=== PATIENT | male | born 1995 | race Caucasian/White ===

== ENCOUNTER 2017-01-27 01:26 | Emergency (ER) | payer SELFPAY ==
[2017-01-27 01:32] VITALS: BP 132/73
[2017-01-27] MEDS ORDERED: HYDROCODONE/ACETAMINOPHEN 5-325 MG TABLET PO ONE (02:24)
[2017-01-27] MEDS ORDERED: BACITRACIN ZINC OINTMENT 15 GM TP ONE (02:24)
[2017-01-27] MEDS ORDERED: IBUPROFEN 800 MG TABLET PO ONE (02:24)
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
== END 2017-01-27 04:36 | disposition left against medical advice (07) ==
LOC: ER 01:26
DX: S50.12XA Contusion of left forearm, initial encounter (principal); S40.812A Abrasion of left upper arm, initial encounter; M79.632 Pain in left forearm; W22.8XXA Striking against or struck by other objects, initial encounter; Y92.009 Unspecified place in unspecified non-institutional (private) residence as the place of occurrence of the external cause; F17.200 Nicotine dependence, unspecified, uncomplicated
CPT/HCPCS: 99283; J3490

== ENCOUNTER 2017-02-01 21:05 | Emergency (ER) | payer SELFPAY ==
[2017-02-01 22:24] VITALS: BP 121/71
[2017-02-01 23:26] LABS: APPEARANCE,URINE CLEAR; BILIRUBIN,URINE NEGATIVE (NEGATIVE); GLUCOSE, URINE NEGATIVE (NEGATIVE); KETONES,URINE NEGATIVE (NEGATIVE); LEUKOCYTE ESTERASE,URINE NEGATIVE (NEGATIVE); NITRITE,URINE NEGATIVE (NEGATIVE); PROTEIN,URINE NEGATIVE (NEGATIVE); URINE SPECIFIC GRAVITY 1.026
[2017-02-01] MEDS ORDERED: IBUPROFEN 600 MG TABLET PO ONE (23:56)
--- NOTE | 2017-02-02 | ER Document Report ---
ED General - General Chief Complaint: Groin Pain Stated Complaint: GROIN PAIN Time Seen by Provider: 02/01/17 23:33 Notes: Patient is a 21-year-old male with a past medical history who presents with 48 hours of left inguinal swelling. Patient reports that he has several lumps in this area that are painful to touch. He does describe a dull, constant, throbbing pain to the area worsened by touching them. Nothing improves the pain. He denies a history of similar symptoms in the past. He denies any infectious symptoms, fever, or rashes. No penile lesions or scrotal lesions. He notes intermittent dysuria. He has not seen a primary care doctor regarding today's concerns. TRAVEL OUTSIDE OF THE [place] IN LAST 30 DAYS: No - Related Data Allergies/Adverse Reactions: No Known Allergies Allergy (Verified 02/01/17 22:23) Past Medical History - General Information source: Patient - Social History Smoking Status: Current Every Day Smoker Frequency of alcohol use: Occasional Drug Abuse: None Lives with: Spouse/Significant other Family History: Reviewed & Not Pertinent Patient has suicidal ideation: No Patient has homicidal ideation: No Renal/ Medical History: Denies: Hx Peritoneal Dialysis Review of Systems - Review of Systems Notes: Constitutional: Negative for fever. HENT: Negative for sore throat. Eyes: Negative for visual changes. Cardiovascular: Negative for chest pain. Respiratory: Negative for shortness of breath. Gastrointestinal: Negative for abdominal pain, vomiting or diarrhea. Genitourinary: Negative for dysuria. Musculoskeletal: Negative for back pain. Skin: Positive for inguinal lymph node swelling Neurological: Negative for headaches, weakness or numbness. 10 point ROS negative except as marked above and in HPI. Physical Exam - Vital signs Vitals: Temp Pulse Resp BP Pulse Ox 97.8 F 81 20 121/71 98 02/01/17 22:17 02/01/17 22:17 02/01/17 22:17 02/01/17 22:17 02/01/17 22:17 Interpretation: Normal Notes: PHYSICAL EXAMINATION: GENERAL: Well-appearing, well-nourished and in no acute distress. HEAD: Atraumatic, normocephalic. EYES: Pupils equal round and reactive to light, extraocular movements intact, sclera anicteric, conjunctiva are normal. ENT: nares patent, oropharynx clear without exudates. Moist mucous membranes. NECK: Normal range of motion, supple without lymphadenopathy LUNGS: Breath sounds clear to auscultation bilaterally and equal. No wheezes rales or rhonchi. HEART: Regular rate and rhythm without murmurs ABDOMEN: Soft, nontender, normoactive bowel sounds. No guarding, no rebound. No masses appreciated. : No penile lesions or scrotal lesions. There are 3 mobile, soft, tender lymph nodes to the left inguinal region. EXTREMITIES: Normal range of motion, no pitting or edema. No cyanosis. NEUROLOGICAL: No focal neurological deficits. Moves all extremities spontaneously and on command. PSYCH: Normal mood, normal affect. SKIN: Warm, Dry, normal turgor, no rashes or lesions noted. Course - Re-evaluation Re-evalutation: 02/01/17 23:57 Patient presents with left inguinal lymphadenopathy that is painful to palpation , mobile or any evidence of an acute abscess or signs that would be worrisome for an acute malignancy. Testicular exam is unremarkable, positive cremasteric reflex bilaterally. No evidence of penile lesions or discharge. There is no evidence of a soft tissue infection in either of the lower extremities. Patient denies any additional acute infectious symptoms. Abdominal exam is likewise benign without any focal tenderness, rebound or guarding. Exact etiology of his lymphadenopathy is uncertain at this time. I have encouraged the patient continue to monitor for any signs of infection that could be triggering lymphadenopathy have encouraged him to follow-up with his primary care doctor in the next several days. I also encouraged the patient that should lymphadenopathy not resolve within the next 3-4 weeks that he may require a biopsy of the area but again have emphasized to him at this time he does not appear to be malignant in origin. Urinalysis was obtained in triage is noted to be unremarkable. I do not believe any further imaging or laboratories are indicated at this time based on patient's overall well appearance, vitals, and examination. At this time will discharge with return precautions and follow-up recommendations. Verbal discharge instructions given a the bedside and opportunity for questions given. Medication warnings reviewed. Patient is in agreement with this plan and has verbalized understanding of return precautions and the need for primary care follow-up in the next 24-72 hours. - Vital Signs Vital signs: Temp Pulse Resp BP Pulse Ox 97.8 F 81 20 121/71 98 02/01/17 22:17 02/01/17 22:17 02/01/17 22:17 02/01/17 22:17 02/01/17 22:17 - Laboratory Laboratory results interpreted by me: 02/01/17 22:45 Urine Urobilinogen 2.0 H Discharge - Discharge Clinical Impression: Inguinal lymphadenopathy Condition: Good Disposition: HOME, SELF-CARE Additional Instructions: The bumps in your groin are lymph nodes which have become swollen for an unclear reason. These often become swollen and irritated in the setting of an infection although at this time on your examination there is no evidence of an acute infection on your genitals or skin of your lower extremities. Please continue to monitor for any signs of infection. Follow-up with your primary care doctor in the next several days. You may require a biopsy of these lymph nodes if the swelling does not go down within the next 3-4 weeks. Return for any additional concerns you may have. Take ibuprofen 600 mg every 6 hours as needed for pain discomfort. You may also apply heating pad to the area.
[2017-02-02 00:44] LABS: CHLAM PCR NOT DETECTED (NOT DETECT)
== END 2017-02-02 00:19 | disposition home or self-care (01) ==
LOC: ER 21:05
DX: R59.1 Generalized enlarged lymph nodes (principal); R10.30 Lower abdominal pain, unspecified; R30.0 Dysuria; F17.200 Nicotine dependence, unspecified, uncomplicated
CPT/HCPCS: 81001; 87491; 87591; 99283